=== PATIENT | female | born 2000 | race Caucasian/White ===

== ENCOUNTER 2018-07-05 09:34 | Emergency (ER) | payer OTHER ==
[2018-07-05 09:50] VITALS: BP 104/53
--- NOTE | 2018-07-05 10:06 | UC ---
Throat Pain/Nasal Lev HPI - History of Current Complaint Chief Complaint: UCGeneralIllness Stated Complaint: SORE THROAT, FEVER Time Seen by Provider: 07/05/18 09:58 Hx Last Menstrual Period: 06/30/18 ?: No Onset/Duration: Sudden Onset, Lasting Days - 2, Worse Since - ONSET Severity: Severe Pain Intensity: 7 Cough: None Associated Signs & Symptoms: Positive: Dysphagia, Fever. Negative: Wheezing, Sinus Discomfort, Nasal Discharge, Vomiting, Rash Related History: Seasonal Allergies - Allergies/Home Medications Allergies/Adverse Reactions: Allergies Allergy/AdvReac Type Severity Reaction Status Date / Time No Known Allergies Allergy Verified 07/05/18 09:46 Home Medications: Home Medications Sertraline* [Zoloft*] 25 - 50 mg PO DAILY 07/05/18 [History Confirmed 07/05/18] lamoTRIgine TAB(*) [Lamictal TAB(*)] 50 mg PO DAILY 07/05/18 [History Confirmed 07/05/18] PMH/Surg Hx/FS Hx/Imm Hx Psychological History: Anxiety, Depression - Surgical History Surgical History: None - Family History Known Family History: Positive: Cardiac Disease, Hypertension, Diabetes - Social History Occupation: Student Lives: Dormitory/Roommates Alcohol Use: Weekly Substance Use Type: None Smoking Status (MU): Never Smoked Tobacco Review of Systems Constitutional: Fever ENT: Sore Throat Neurological: Headache Is Patient Immunocompromised?: No All Other Systems Reviewed And Are Negative: Yes Physical Exam Triage Information Reviewed: Yes Appearance: Well-Nourished, Ill-Appearing, Pain Distress - with swollowing Vital Signs: Initial Vital Signs Temp 98.6 F 07/05/18 09:47 Pulse 90 07/05/18 09:47 Resp 16 07/05/18 09:47 BP 104/53 07/05/18 09:47 Pulse Ox 99 07/05/18 09:47 Vital Signs Reviewed: Yes Eyes: Positive: Conjunctiva Clear ENT: Positive: Pharyngeal erythema, Nasal congestion, TMs normal Dental Exam: Normal Neck: Positive: Tenderness @ - bilateral anterior cervical., Enlarged Nodes @ - bilateral anterior cervical Respiratory Exam: Normal Cardiovascular Exam: Normal Musculoskeletal Exam: Normal Neurological Exam: Normal Psychological Exam: Normal Skin Exam: Normal Throat Pain/Nasal Course/Dx - Differential Dx/Diagnosis Differential Diagnosis/HQI/PQRI: Peritonsillar Abscess, Pharyngitis, Sinusitis, Tonsillitis Provider Diagnoses: Acute strep pharyngitis Discharge - Sign-Out/Discharge Documenting (check all that apply): Patient Departure All imaging exams completed and their final reports reviewed: No Studies - Discharge Plan Condition: Stable Disposition: HOME Prescriptions: Amoxicillin PO (*) [Amoxicillin 875 MG (*)] 875 mg PO BID #20 tab Fluconazole [Fluconazole 150 mg tab] 150 mg PO ONCE #1 tablet Patient Education Materials: Strep Throat (ED), Amoxicillin (By mouth) Referrals: No Primary Care Phys,NOPCP [Primary Care Provider] - Additional Instructions: Sterilize or replace your toothbrush after 4 or 5 days on the antibiotics. WATCH YOUR POSTURE. - Billing Disposition and Condition Condition: STABLE Disposition: Home
== END 2018-07-05 10:17 | disposition home or self-care (01) ==
LOC: UCCORT 09:34
DX: J02.0 Streptococcal pharyngitis (principal); F41.9 Anxiety disorder, unspecified; F32.9 Major depressive disorder, single episode, unspecified; Z79.899 Other long term (current) drug therapy
CPT/HCPCS: 87651; 99202; G0463